=== PATIENT | female | born 1970 | race Caucasian/White ===

== ENCOUNTER 2018-03-01 13:59 | Emergency (ER) | payer OTHER ==
[~2018-03-01] VITALS: Ht 170.2 cm; Wt 97.1 kg
--- NOTE | ~2018-03-01 | EKG ---
[address] [place] [address] ELECTROCARDIOGRAM REPORT Name: PATRICIO CARD Room #: DEP LILIA Randolph#: [id number] Admission: 03/01/18 Attend Phys: Discharge: 03/01/18 Date of : 68 Report #: [id number] THIS REPORT FOR: //name// [facility] ED Test Date: 2018-03-01 Test Time: 15:14:07 Pat Name: PATRICIO CARD Department: Room: Gender: F Sand Miller: MZOOK : 1970 Requested By: Ronald Carballo Order Number: [id number] MD: Leon Masterson Measurements Intervals [place] Rate: 79 P: 63 [place]: 182 QRS: 97 QRSD: 110 T: 25 QT: 435 QTc: 499 Interpretive Statements Sinus rhythm Consider RVH w/ secondary repol abnormality Borderline prolonged QT interval No previous ECG available for comparison Electronically Signed On 03-02-2018 8:22:27 CDT by Leon Masterson [email or web address] <ELECTRONICALLY SIGNED> By: Leon Masterson MD, [facility] 03/02/18 0822 1514 1514 Leon Masterson MD, FACC /EPI
[2018-03-01 15:04] LABS: ABSOLUTE NEUTROPHILS 9.6 thou/uL (1.4-8.2); BASOPHILS 0.8 % (0.0-2.0); EOSINOPHILS 0.5 % (0.0-3.0); HEMATOCRIT 36.1 % (37.0-47.0); HEMOGLOBIN 11.8 gm/dL (12.0-15.0); LYMPHOCYTES 22.7 % (24.0-44.0); MCH 26.5 pg (26.0-34.0); MCHC 32.6 g/dL (28.0-37.0); MCV 81.1 fL (80.0-100.0); MONOCYTES 5.7 % (1.0-8.0); PLATELET COUNT 265 thou/uL (150-400); POLYS 70.3 % (36.0-66.0); RBC 4.45 mil/uL (4.20-5.00); RDW 16.1 % (10.5-14.5); WBC 13.6 thou/uL (4.0-11.0)
[2018-03-01 15:14] LABS: ANION GAP 10 mmol/L (7-16); BUN 6 mg/dL (7-18); CALCIUM 9.1 mg/dL (8.5-10.1); CHLORIDE 106 mmol/L (98-107); CO2 25 mmol/L (21-32); CREATININE 0.7 mg/dL (0.6-1.0); GLUCOSE 176 mg/dL (74-106); POTASSIUM 3.1 mmol/L (3.5-5.1); SODIUM 141 mmol/L (136-145)
[2018-03-01 15:22] LABS: TROPONIN-I < 0.04 ng/mL (<0.06)
[2018-03-01] MEDS ORDERED: METFORMIN HCL500 MG PO (15:26)
[2018-03-01] MEDS ORDERED: TOPAMAX 100 MG100 MG PO (15:26)
[2018-03-01] MEDS ORDERED: NORVASC10 MG PO (15:27)
[2018-03-01] MEDS ORDERED: LIPITOR40 MG PO (15:27)
[2018-03-01] MEDS ORDERED: LAMICTAL100 MG PO (15:27)
[2018-03-01] MEDS ORDERED: COZAAR 50 MG TA50 M2 PO (15:27)
[2018-03-01] MEDS ORDERED: BELSOMRA10 MG PO (15:28)
[2018-03-01] MEDS ORDERED: REXULTI1 MG PO (15:28)
[2018-03-01] MEDS ORDERED: ASPIR 8181 MG PO (15:28)
[2018-03-01] MEDS ORDERED: BUSPIRONE HCL10 MG PO (15:28)
[2018-03-01] MEDS ORDERED: CELEXA40 MG PO (15:29)
[2018-03-01] MEDS ORDERED: MELATONIN10 M2 PO (15:29)
[2018-03-01] MEDS ORDERED: NEURONTIN 300300 M1 PO ×2 (15:29)
[2018-03-01 15:51] LABS: URINE BILIRUBIN NEGATIVE (Negative); URINE BLOOD NEGATIVE (Negative); URINE CLARITY CLEAR; URINE COLOR YELLOW; URINE GLUCOSE-RANDOM* NEGATIVE (Negative); URINE KETONES NEGATIVE (Negative); URINE LEUKOCYTES-REFLEX NEGATIVE (Negative); URINE NITRITE-REFLEX NEGATIVE (Negative); URINE PROTEIN (DIPSTICK) NEGATIVE (Negative); URINE SPECIFIC GRAVITY <= 1.005 (1.005-1.035); URINE UROBILINOGEN 0.2 E.U./dl (0.2-1.0)
[2018-03-01 15:58] LABS: AMP/METHAMP Negative (Negative); BARBITURATES Negative (Negative); BENZODIAZEPINES Negative (Negative); COCAINE Negative (Negative); METHADONE Negative (Negative); OPIATES Negative (Negative); PCP Negative (Negative)
[2018-03-01 17:56] VITALS: BP 113/64
== END 2018-03-01 17:58 | disposition home or self-care (01) ==
LOC: ER 13:59
PROVIDERS: Physician Assistant
DX: G40.909 Epilepsy, unspecified, not intractable, without status epilepticus (principal); F17.210 Nicotine dependence, cigarettes, uncomplicated; Z88.1 Allergy status to other antibiotic agents; Z88.0 Allergy status to penicillin; Z88.5 Allergy status to narcotic agent